=== PATIENT | female | born 1980 | race Two or more races ===

== ENCOUNTER 2016-08-24 13:17 | Emergency (ER) | payer MEDICAID ==
[2016-08-24 13:39] VITALS: BP 110/81; RESP 16; TEMP 98.5; O2SAT 96
--- NOTE | 2016-08-24 14:19 | ED PDOC ---
HPI: Chest Pain Time Seen by Provider: 08/24/16 13:53 Chief Complaint (Nursing): Chest Pain Chief Complaint (Provider): chest pain History Per: Patient Additional Complaint(s): 35-year-old female presents to emergency department with chest pain and shortness of breath that started yesterday. Patient also states that she has had slight cough. No fever or chills. The patient states she feels slightly out of breath when she is walking. She has no history of similar symptoms. Patient denies any recent travel. She denies any known sick contacts. Patient also reports mild nausea but no vomiting. Past Medical History Reviewed: Historical Data, Nursing Documentation, Vital Signs Vital Signs: Last Vital Signs Temp 98.5 F 08/24/16 13:36 Pulse 90 08/24/16 13:36 Resp 16 08/24/16 13:36 BP 110/81 08/24/16 13:36 Pulse Ox 96 08/24/16 14:19 - Medical History PMH: No Chronic Diseases - Surgical History Surgical History: No Surg Hx - Family History Family History: States: No Known Family Hx - Living Arrangements Living Arrangements: With Family - Social History Current smoker - smoking cessation education provided: Yes ("sometimes") Alcohol: Social Drugs: Denies - Home Medications Home Medications: Ambulatory Orders Medication Instructions Recorded Mebendazole 100 mg PO ONCE #1 ctb 12/08/14 - Allergies Allergies/Adverse Reactions: Allergies Allergy/AdvReac Type Severity Reaction Status Date / Time No Known Allergies Allergy Verified 12/08/14 17:54 GIO Risk Score for UA/NSTEMI - GIO Risk Score Age > 64: NO 3 or more CAD Risk Factors: NO Known CAD (Stenosis greater than 50%): NO Aspirin use in past 7 days: NO Severe Angina: NO EKG ST changes greater than 0.5mm: NO Positive Cardiac Marker: NO GIO Score: 0 Risk %: 5% Curb-65 Severity Score - CURB-65 Severity Score Confusion: No Respiratory Rate greater than/equal to 30: No Systolic BP <90 or Diastolic BP less than/equal 60mmHg: No Age >64: No Curb-65 Score: 0 Percentage 30-day mortality: 0.6% Wells Criteria for PE - Wells Criteria for Pulmonary Embolism Clinical Signs and Symptoms of DVT: No P.E is #1 Diagnosis, or Equally Likely: No Heart Rate >100: No Immobilization at least 3 days;Surgery previous 4 weeks: No Previous, objectively diagnosed PE or DVT: No Hemoptysis: No Malignancy w/treatment within 6 months, or palliative: No Total Score: 0 Review of Systems ROS Statement: Except As Marked, All Systems Reviewed And Found Negative Constitutional: Negative for: Fever Cardiovascular: Positive for: Chest Pain. Negative for: Palpitations Respiratory: Positive for: Cough, Shortness of Breath, SOB with Exertion Gastrointestinal: Positive for: Nausea Neurological: Negative for: Headache, Dizziness Physical Exam - Reviewed Nursing Documentation Reviewed: Yes Vital Signs Reviewed: Yes - Physical Exam Appears: Positive for: Well, Non-toxic, No Acute Distress Head Exam: Positive for: ATRAUMATIC, NORMAL INSPECTION, NORMOCEPHALIC ENT: Positive for: Normal ENT Inspection Cardiovascular/Chest: Positive for: Regular Rate, Rhythm Respiratory: Positive for: Decreased Breath Sounds. Negative for: Rhonchi, Wheezing Gastrointestinal/Abdominal: Positive for: Normal Exam, Soft. Negative for: Tenderness Back: Positive for: Normal Inspection. Negative for: L CVA Tenderness, R CVA Tenderness Extremity: Positive for: Normal ROM, Pedal Edema Neurologic/Psych: Positive for: Alert, Oriented - ECG O2 Sat by Pulse Oximetry: 96 Pulse Ox Interpretation: Normal Medical Decision Making Medical Decision Makin-year-old chest pain or shortness of breath. EKG demonstrates normal sinus rhythm at 86 bpm, reviewed by PA and ED attending. Plan: CXR CBC CMP Troponin D-dimer IV fluids Patient refused all blood work and further diagnostic test results, she states that she does not want to wait in ED for testing to be completed. Patient was informed that she would need to sign out AGAINST MEDICAL ADVICE. The dangers and risks of signing out AGAINST MEDICAL ADVICE were discussed in detail with patient and include but are not limited to worsening of current condition and possible . Patient verbalizes understanding of these risks and dangers and still wishes to leave. Patient is awake and alert and capable and competent to make this decision. AMA form was reviewed with patient in detail and all of patient's questions were answered. Disposition - Clinical Impression Clinical Impression: Chest pain, Left against medical advice, Shortness of breath - Patient ED Disposition Is Patient to be Admitted: No - Disposition Disposition: Against Medical Advice Disposition Time: 14:40 Condition: UNKNOWN Additional Instructions: You have decided to sign out AGAINST MEDICAL ADVICE. Follow-up with your primary doctor or return to emergency department as soon as possible. Instructions: Against Medical Advice (ED), Chest Pain (ED)
[2016-08-24 14:52] VITALS: PULSE 85
== END 2016-08-24 15:00 | disposition left against medical advice (07) ==
LOC: H.ER 13:17
DX: R07.9 Chest pain, unspecified (principal); R06.02 Shortness of breath